=== PATIENT | female | born 1970 | race Caucasian/White ===

== ENCOUNTER → 2020-10-19 | Outpatient (REF) | payer MEDICARE ==
[2020-10-19 18:54] LABS: APPEARANCE, URINE CLOUDY (CLEAR); BACTERIA, URINE AUTO NEGATIVE (NEGATIVE); BILIRUBIN, URINE AUTO NEGATIVE (NEGATIVE); BLOOD, URINE BLOOD NEGATIVE (NEGATIVE); COLOR, URINE AMBER (YELLOW); GLUCOSE, URINE (UA) AUTO 3+ mg/dL (NEGATIVE); KETONE, URINE AUTO NEGATIVE (NEGATIVE); LEUKOCYTE ESTERASE, URINE AUTO NEGATIVE (NEGATIVE); MUCUS, URINE SMALL (NEGATIVE); NITRITE, URINE AUTO NEGATIVE (NEGATIVE); PROTEIN, URINE AUTO NEGATIVE (NEGATIVE); RBC, URINE AUTO 2 /HPF (0-3); SPECIFIC GRAVITY URINE AUTO 1.022 (1.002-1.035); SQUAMOUS EPITHELIAL CELL UR AU 1 /HPF (0-6); UROBILINOGEN, URINE AUTO 0.2 mg/dL (0.0-2.0); WBC, URINE AUTO 5 /HPF (0-3)
== END ==
LOC: M SMT 17:33
PROVIDERS: ATTEND Nurse Practitioner Family
DX: R32 Unspecified urinary incontinence (principal)
CPT/HCPCS: 51798; 81001; 87086; G0463

== ENCOUNTER 2021-01-27 12:52 | Emergency (ER) | payer MEDICARE ==
[~2021-01-27] VITALS: Ht 167.6 cm; Wt 54.5 kg
[2021-01-27] MEDS ORDERED: TRAZ-252 PO (13:32)
[2021-01-27] MEDS ORDERED: GABA-283 PO (13:33)
[2021-01-27] MEDS ORDERED: OXYB10TA23 PO (13:33)
[2021-01-27] MEDS ORDERED: BUPR300T92 PO (13:33)
[2021-01-27] MEDS ORDERED: PANT40TA29 PO (13:33)
[2021-01-27] MEDS ORDERED: METH1VL IV (13:35)
[2021-01-27] MEDS ORDERED: OCRE300I IV (13:35)
[2021-01-27 15:09] LABS: BASO % 0.3 % (0.0-1.0); EOS # 0.2 10^3/uL (0.0-0.5); EOS % 1.2 % (0.0-3.0); HEMATOCRIT 35.9 % (36.0-47.0); HEMOGLOBIN 11.9 g/dl (12.0-15.5); LYMPH # 1.3 10^3/uL (1.5-5.0); LYMPH % 10.2 % (24.0-44.0); MEAN CORPUSCULAR HGB CONC 33.1 g/dl (32.0-36.5); MEAN CORPUSCULAR VOLUME 90.4 fl (80.0-96.0); MONO # 0.5 10^3/uL (0.0-0.8); MONO % 4.4 % (2.0-8.0); NEUTROPHILS # 10.3 10^3/uL (1.5-8.5); NEUTROPHILS % 83.5 % (36.0-66.0); PLATELET COUNT, AUTOMATED 232 10^3/uL (150-450); RED BLOOD COUNT 3.97 10^6/uL (4.00-5.40); WHITE BLOOD COUNT 12.4 10^3/uL (4.0-10.0)
[2021-01-27 15:48] LABS: BLOOD UREA NITROGEN 13 MG/DL (7-18); CALCIUM LEVEL 8.3 MG/DL (8.5-10.1); CARBON DIOXIDE LEVEL 28 MEQ/L (21-32); CHLORIDE LEVEL 106 MEQ/L (98-107); GLOMERULAR FILTRATION RATE > 60.0 (>51); GLUCOSE, FASTING 77 MG/DL (70-100); SODIUM LEVEL 141 MEQ/L (136-145); THYROID STIMULATING HORMONE 0.688 uIU/ML (0.358-3.740)
[2021-01-27 16:05] LABS: CK-MB VALUE MASS < 1.0 NG/ML (<3.6); CPK CREATINE PHOSPHOKINASE 42 U/L (26-192); MB/CK RELATIVE INDEX 2.38 (< OR =4); TROPONIN I < 0.02 NG/ML (< 0.10)
[2021-01-27] MEDS ORDERED: SODIUM CHLORIDE 0.9% INJ 10 ML SYR IV PRN (16:50)
[2021-01-27 17:14] VITALS: BP 114/68
--- NOTE | 2021-01-28 07:47 | ECGEPIP ---
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
[2021-01-28] MEDS ORDERED: SODIUM CHLORIDE 0.9% INJ 10 ML SYR IV SCH (09:00)
[2021-01-31] MEDS ORDERED: METH-855 PO (09:30)
== END 2021-01-27 17:16 | disposition home or self-care (01) ==
LOC: M ED 12:52
DX: R55 Syncope and collapse (principal); G35 Multiple sclerosis; Z79.899 Other long term (current) drug therapy
CPT/HCPCS: 36415; 80048; 81015; 82550; 82553; 84443; 84484; 85025; 87086; 93005; 93041; 94760; 99284; G0463; J1642

== ENCOUNTER → 2021-01-27 | Outpatient (REF) | payer MEDICARE ==
[~2021-01-27] MED LIST: BUPR300T92 PO; GABA-283 PO; METH-855 PO; METH1VL IV; OCRE300I IV; OXYB10TA23 PO; PANT40TA29 PO; TRAZ-252 PO
[2021-01-27 18:18] LABS: BACTERIA, URINE AUTO NEGATIVE (NEGATIVE); RBC, URINE AUTO 0 /HPF (0-3); SQUAMOUS EPITHELIAL CELL UR AU 0 /HPF (0-6); WBC, URINE AUTO 12 /HPF (0-3)
== END ==
LOC: M SMT 17:10
PROVIDERS: ATTEND Specialist
DX: R32 Unspecified urinary incontinence (principal)

== ENCOUNTER 2021-02-01 07:26 | Day surgery (SDC) | payer MEDICARE ==
[~2021-02-01] VITALS: Ht 167.6 cm; Wt 54.4 kg
[~2021-02-01 07:26] MED LIST changes: +LIDOCAINE 1% MDV 20ML VIAL SQ PRN; +LR 1,000 ML IV ONE
[2021-02-01] MEDS ORDERED: ceFAZolin SOD 2 GM in IV 1 EA IV ONE (07:55)
[2021-02-01] MEDS ORDERED: LIDOCAINE 1% SDV 30ML VIAL As Ordered ONE (08:51)
[2021-02-01] MEDS ORDERED: SODIUM BICARBONATE 8.4% INJ 50MEQ 50 ML VIAL As Ordered ONE (09:24)
[2021-02-01] MEDS ORDERED: KETOROLAC 60MG 2ML VIAL As Ordered ONE (09:26)
[2021-02-01] MEDS ORDERED: propofoL 200 MG/20 ML VIAL As Ordered ONE (09:26)
[2021-02-01] MEDS ORDERED: fentaNYL 100 MCG/2 ML INJECTION (J3010) As Ordered ONE (09:26)
[2021-02-01] MEDS ORDERED: MIDAZOLAM INJ 2MG/2ML VIAL (J2250 PER 1MG) As Ordered ONE (09:26)
[2021-02-01] MEDS ORDERED: LIDOCAINE 2% 100MG/5ML SDV (FOR ANES.) As Ordered ONE (09:26)
[2021-02-01] MEDS ORDERED: ONDANSETRON 4MG/2ML VIAL As Ordered ONE (09:26)
[2021-02-01] MEDS ORDERED: GLYCOPYRROLATE INJ 0.2 MG/ML 2 ML VIAL As Ordered ONE (09:26)
[2021-02-01] MEDS ORDERED: KETAMINE HCL 200 MG/20 ML VIAL As Ordered ONE (10:03)
[2021-02-01] MEDS ORDERED: ceFAZolin 1GM VIAL (J0690 PER 500MG) As Ordered ONE (10:03)
--- NOTE | 2021-02-01 10:30 | REP ---
INDICATION: INTERSTIM STAGE 2 PLACEMENT. COMPARISON: None. TECHNIQUE: Two views. 29.8 seconds of fluoroscopy time is reported FINDINGS: A sequence of 2 last image hold fluoroscopically obtained spot radiographs of the sacrum document trans sacral neurostimulator lead placement. IMPRESSION: Procedural imaging. <Electronically signed by Romulo Hernandez > 02/01/21 1023
--- NOTE | 2021-02-01 10:42 | ROOPDOC ---
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 She underwent the InterStim test and noticed a significant improvement even though she did not feel the device in the vaginal region. It was decided to proceed with permanent implantation. All options, alternatives, risks, and benefits were discussed at length. Risks discussed included bleeding, infection, problems with any of the implantable hardware, need for reprogramming, pain at the implant site etc. Informed consent was obtained in both verbal and written form. DESCRIPTION OF PROCEDURE: The patient was brought into the operating room and placed in the prone position. She had pillows placed under her pelvis and under her shins. Tape was placed so that we could see her anus. IV sedation was given and she was prepped and draped in the usual fashion. A special foramen needle was placed 2 cm above the sacral notch and 3 cm lateral where the inductor tester had been placed. Using fluoroscopy this was then placed through the right S3 foramen. The depth of the needle was confirmed and adjusted fluoroscopically. The patient then identified the location but did not have sensation in the vagina. She had excellent motor response with anal bellowing followed by big toe movement on low levels. The foramen needle stylette was removed and a directional guide was placed and confirmed fluoroscopy. Lead introducer sheath and dilator was placed through the needle and the needle was removed. The lead was seen until 3 electrodes were visible below the sacrum. The electrode was tested for location and patient sensation, visualization of [place], and plantar flexion. An incision was then made into the subcutaneous tissue posterior to the iliac crest and lateral to the sacrum. Blunt dissection was continued until there was a pocket large enough for the Interstim battery. The tunneling tool with straw was placed from the lead exit site subcutaneously to the incised pocket. The tunneling tube was removed and the lead was fed through the straw and pulled out of the pocket site. The lead was cleansed of bodily fluid, dried and antibiotic irrigation was used. The lead was then inserted into the header of the InterStim neurostimulator until the blue tip was visualized at the distal window the single setscrew was tightened. The neurostimulator was placed in the subcutaneous pocket with the edge identified side placed upwards and the excessive lead wrapped counterclockwise around the neurostimulator. The programming head was placed over the implanted neurostimulator in a sterile cover to ensure adequate lead connection and the parameters with were within normal limits. Impedances were confirmed to be within normal limits. The wound was again irrigated with antibiotic solution and closed with 2-0 chromic subcuticulars sutures and 4-0 Monocryl skin sutures. Counts were correct. Steri- Strips and gauze was placed over the incision. The patient tolerated the procedure well. RAYNA BECKETT MD Feb 01, 2021 10:42
[2021-02-01 11:20] VITALS: BP 102/70
== END 2021-02-01 11:25 | disposition home or self-care (01) ==
LOC: M SDC 07:26
PROVIDERS: ATTEND Specialist
DX: R32 Unspecified urinary incontinence (principal); G35 Multiple sclerosis; K21.9 Gastro-esophageal reflux disease without esophagitis; Z79.899 Other long term (current) drug therapy; G25.81 Restless legs syndrome; E78.2 Mixed hyperlipidemia
CPT/HCPCS: 64581; 64590; 76000; C1767; C1897; J0690; J1885; J2250; J2405; J3010; U0002

== ENCOUNTER → 2022-08-04 | Outpatient (CLI) | payer MEDICAID, MEDICARE ==
[~2022-08-04] MED LIST changes: -LIDOCAINE 1% MDV 20ML VIAL SQ PRN; -LR 1,000 ML IV ONE
== END ==
LOC: M RAD 10:28
PROVIDERS: ATTEND Psychiatry & Neurology Neurology
DX: G35 Multiple sclerosis (principal)

== ENCOUNTER → 2022-10-18 | Outpatient (REF) | payer MEDICARE ==
[2022-10-18 19:23] LABS: AMORPHOUS SEDIMENT LARGE (NEGATIVE); BACTERIA, URINE AUTO NEGATIVE (NEGATIVE); RBC, URINE AUTO 0 /HPF (0-3); SQUAMOUS EPITHELIAL CELL UR AU 0 /HPF (0-6); WBC, URINE AUTO 6 /HPF (0-3)
== END ==
LOC: M SMT 16:50
PROVIDERS: ATTEND Specialist
DX: R82.90 Unspecified abnormal findings in urine (principal)

== ENCOUNTER 2023-03-03 16:26 | Inpatient (IN) | payer MEDICARE, MEDICAID ==
[~2023-03-03] VITALS: Ht 167.6 cm; Wt 68.2 kg
[~2023-03-03 16:26] MED LIST changes: -GABA-283 PO; +GABA-284 PO
[2023-03-03] MEDS ORDERED: OFAT20PE INJ (16:45)
[2023-03-03] MEDS ORDERED: SODIUM CHLORIDE 0.9% INJ 10 ML SYR IV PRN (19:30)
[2023-03-03 20:18] LABS: BASO # 0.1 10^3/uL (0.0-0.2); BASO % 0.8 % (0.0-1.0); EOS # 0.3 10^3/uL (0.0-0.5); EOS % 3.6 % (0.0-3.0); HEMATOCRIT 35.3 % (36.0-47.0); HEMOGLOBIN 11.5 g/dl (12.0-15.5); LYMPH # 2.5 10^3/uL (1.5-5.0); LYMPH % 33.5 % (24.0-44.0); MEAN CORPUSCULAR HEMOGLOBIN 30.3 pg (27.0-33.0); MEAN CORPUSCULAR HGB CONC 32.6 g/dl (32.0-36.5); MEAN CORPUSCULAR VOLUME 92.9 fl (80.0-96.0); MONO # 0.6 10^3/uL (0.0-0.8); MONO % 8.4 % (2.0-8.0); NEUTROPHILS % 53.4 % (36.0-66.0); PLATELET COUNT, AUTOMATED 312 10^3/uL (150-450); WHITE BLOOD COUNT 7.5 10^3/uL (4.0-10.0)
[2023-03-03 20:33] LABS: ERYTHROCYTE SEDIMENTATION RATE 12 mm/hr (0-30)
[2023-03-03 20:43] LABS: ALBUMIN 3.5 G/DL (3.2-5.2); ALKALINE PHOSPHATASE 58 U/L (46-116); ALT/SGPT 56 U/L (7.0-40); AST/SGOT 26 U/L (<34); BILIRUBIN,DIRECT < 0.1 MG/DL (<0.4); BILIRUBIN,TOTAL < 0.2 MG/DL (0.3-1.2); BLOOD UREA NITROGEN 15 MG/DL (9-23); CALCIUM LEVEL 8.6 MG/DL (8.5-10.1); CARBON DIOXIDE LEVEL 28 MMOL/L (20-31); CHLORIDE LEVEL 106 MMOL/L (98-107); CREATININE FOR GFR 0.56 MG/DL (0.55-1.30); GLOMERULAR FILTRATION RATE > 60.0 (>51); GLUCOSE, FASTING 101 MG/DL (60-100); SODIUM LEVEL 143 MMOL/L (136-145); TOTAL PROTEIN 6.2 G/DL (5.7-8.2)
[2023-03-03] MEDS ORDERED: GABAPENTIN 400MG CAP PO SCH (21:00)
[2023-03-03 21:41] LABS: C REACTIVE PROTEIN QUANTITATIV < 0.40 MG/DL (<1.0)
[2023-03-04] MEDS ORDERED: HOME MED LIST COMPLETE! XX SCH (00:20)
[2023-03-04] MEDS ORDERED: GABA800T4 PO ×2 (00:20)
[2023-03-04 06:30] LABS: HEMOGLOBIN 10.5 g/dl (12.0-15.5); MEAN CORPUSCULAR HEMOGLOBIN 29.7 pg (27.0-33.0); MEAN CORPUSCULAR HGB CONC 31.8 g/dl (32.0-36.5); MEAN CORPUSCULAR VOLUME 93.5 fl (80.0-96.0); PLATELET COUNT, AUTOMATED 267 10^3/uL (150-450); RED BLOOD COUNT 3.53 10^6/uL (4.00-5.40); WHITE BLOOD COUNT 6.1 10^3/uL (4.0-10.0)
[2023-03-04 06:58] LABS: BLOOD UREA NITROGEN 15 MG/DL (9-23); CALCIUM LEVEL 8.7 MG/DL (8.5-10.1); CARBON DIOXIDE LEVEL 30 MMOL/L (20-31); CHLORIDE LEVEL 105 MMOL/L (98-107); CREATININE FOR GFR 0.72 MG/DL (0.55-1.30); GLOMERULAR FILTRATION RATE > 60.0 (>51); GLUCOSE, FASTING 88 MG/DL (60-100); MAGNESIUM LEVEL 1.6 MG/DL (1.8-2.4); POTASSIUM SERUM 4.1 MMOL/L (3.5-5.1); SODIUM LEVEL 142 MMOL/L (136-145)
[2023-03-04] MEDS: traZODone 50 MG TAB PO SCH ×2 (06:59→20:44)
[2023-03-04] MEDS: GABAPENTIN 400MG CAP PO SCH ×3 (06:59→20:44)
[2023-03-04] MEDS: buPROPion **XL** TABLET 150MG (WELLBUTRIN XL) PO SCH (08:20)
[2023-03-04] MEDS: ENOXAPARIN 40MG/0.4ML SYRINGE (J1650 PER 10MG) SC SCH (08:21)
[2023-03-04] MEDS: oxyBUTYnin *DITROPAN XL* 5 MG TABCR PO SCH (08:21)
[2023-03-04] MEDS: PANTOPRAZOLE 40MG TAB (PROTONIX) PO SCH (08:21)
[2023-03-04] MEDS: SODIUM CHLORIDE 0.9% INJ 10 ML SYR IV SCH (08:22)
[2023-03-04] MEDS: ACETAMINOPHEN TAB 650MG DOSE (2X325MG) PO PRN (08:25)
[2023-03-04 14:59] VITALS: BP 115/63; TEMP 98.7; O2SAT 99
[2023-03-05 06:00] VITALS: BP 119/56; TEMP 97.9; O2SAT 98
[2023-03-05 06:33] LABS: HEMATOCRIT 34.4 % (36.0-47.0); MEAN CORPUSCULAR HEMOGLOBIN 29.8 pg (27.0-33.0); MEAN CORPUSCULAR VOLUME 93.2 fl (80.0-96.0); PLATELET COUNT, AUTOMATED 281 10^3/uL (150-450); RED BLOOD COUNT 3.69 10^6/uL (4.00-5.40); WHITE BLOOD COUNT 8.8 10^3/uL (4.0-10.0)
[2023-03-05 07:05] LABS: BLOOD UREA NITROGEN 16 MG/DL (9-23); CALCIUM LEVEL 8.8 MG/DL (8.5-10.1); CARBON DIOXIDE LEVEL 29 MMOL/L (20-31); CHLORIDE LEVEL 107 MMOL/L (98-107); CREATININE FOR GFR 0.79 MG/DL (0.55-1.30); GLOMERULAR FILTRATION RATE > 60.0 (>51); GLUCOSE, FASTING 80 MG/DL (60-100); POTASSIUM SERUM 4.2 MMOL/L (3.5-5.1); SODIUM LEVEL 143 MMOL/L (136-145)
[2023-03-05] MEDS: oxyBUTYnin *DITROPAN XL* 5 MG TABCR PO SCH (08:27)
[2023-03-05] MEDS: PANTOPRAZOLE 40MG TAB (PROTONIX) PO SCH (08:27)
[2023-03-05] MEDS: SODIUM CHLORIDE 0.9% INJ 10 ML SYR IV SCH (08:27)
[2023-03-05] MEDS: buPROPion **XL** TABLET 150MG (WELLBUTRIN XL) PO SCH (08:27)
[2023-03-05] MEDS: GABAPENTIN 400MG CAP PO SCH ×2 (08:27→21:41)
[2023-03-05] MEDS: MAG SULF 1GM/100ML (MAG RUN) 1 GM in IV 1 EA IV SCH ×2 (08:27→08:28)
[2023-03-05] MEDS: ENOXAPARIN 40MG/0.4ML SYRINGE (J1650 PER 10MG) SC SCH (08:28)
[2023-03-05] MEDS ORDERED: METHYLPREDNISOLONE 1000 MG IV SCH (09:00)
[2023-03-05 12:04] LABS: APPEARANCE, URINE CLOUDY (CLEAR); BACTERIA, URINE AUTO 1+ (NEGATIVE); BILIRUBIN, URINE AUTO NEGATIVE (NEGATIVE); BLOOD, URINE BLOOD 1+ (NEGATIVE); COLOR, URINE YELLOW (YELLOW); GLUCOSE, URINE (UA) AUTO NEGATIVE (NEGATIVE); KETONE, URINE AUTO NEGATIVE (NEGATIVE); LEUKOCYTE ESTERASE, URINE AUTO 3+ (NEGATIVE); MUCUS, URINE SMALL (NEGATIVE); NITRITE, URINE AUTO POSITIVE (NEGATIVE); PROTEIN, URINE AUTO 2+ mg/dL (NEGATIVE); RBC, URINE AUTO 11 /HPF (0-3); SPECIFIC GRAVITY URINE AUTO 1.013 (1.002-1.035); SQUAMOUS EPITHELIAL CELL UR AU 0 /HPF (0-6); UROBILINOGEN, URINE AUTO 0.2 mg/dL (0.0-2.0); WBC, URINE AUTO TNTC /HPF (0-3)
[2023-03-05] MEDS: cefTRIAXone SOD 1 GM in D5W MINI-BAG PLUS 50 ML IV SCH (13:00)
[2023-03-05 14:22] VITALS: BP 102/60; TEMP 97.8; O2SAT 100
[2023-03-05] MEDS: ACETAMINOPHEN TAB 650MG DOSE (2X325MG) PO PRN (14:40)
[2023-03-05 21:30] VITALS: BP 111/62; TEMP 97.9; O2SAT 99
[2023-03-05] MEDS: [UNRECOGNIZED DRUG - OTHER] SQ SCH (21:41)
[2023-03-05] MEDS: traZODone 50 MG TAB PO SCH (21:41)
[2023-03-06] MEDS: ACETAMINOPHEN TAB 650MG DOSE (2X325MG) PO PRN (00:53)
[2023-03-06 06:00] VITALS: BP 100/56; TEMP 96.9; O2SAT 98
[2023-03-06 06:34] LABS: HEMATOCRIT 33.7 % (36.0-47.0); HEMOGLOBIN 10.6 g/dl (12.0-15.5); MEAN CORPUSCULAR HEMOGLOBIN 29.6 pg (27.0-33.0); MEAN CORPUSCULAR HGB CONC 31.5 g/dl (32.0-36.5); MEAN CORPUSCULAR VOLUME 94.1 fl (80.0-96.0); PLATELET COUNT, AUTOMATED 282 10^3/uL (150-450); RED BLOOD COUNT 3.58 10^6/uL (4.00-5.40); WHITE BLOOD COUNT 6.7 10^3/uL (4.0-10.0)
[2023-03-06 07:07] LABS: BLOOD UREA NITROGEN 18 MG/DL (9-23); CALCIUM LEVEL 8.5 MG/DL (8.5-10.1); CARBON DIOXIDE LEVEL 30 MMOL/L (20-31); CHLORIDE LEVEL 107 MMOL/L (98-107); CREATININE FOR GFR 0.67 MG/DL (0.55-1.30); GLOMERULAR FILTRATION RATE > 60.0 (>51); GLUCOSE, FASTING 93 MG/DL (60-100); POTASSIUM SERUM 4.3 MMOL/L (3.5-5.1); SODIUM LEVEL 143 MMOL/L (136-145)
[2023-03-06] MEDS: methylPREDNISolone 1,000 MG, VIAL MATE ADAPTER 1 EACH in NS 250 ML IV SCH (09:04)
[2023-03-06] MEDS: buPROPion **XL** TABLET 150MG (WELLBUTRIN XL) PO SCH (09:05)
[2023-03-06] MEDS: oxyBUTYnin *DITROPAN XL* 5 MG TABCR PO SCH (09:05)
[2023-03-06] MEDS: GABAPENTIN 400MG CAP PO SCH ×2 (09:05→20:09)
[2023-03-06] MEDS: PANTOPRAZOLE 40MG TAB (PROTONIX) PO SCH (09:05)
[2023-03-06] MEDS: ENOXAPARIN 40MG/0.4ML SYRINGE (J1650 PER 10MG) SC SCH (09:06)
[2023-03-06] MEDS: SODIUM CHLORIDE 0.9% INJ 10 ML SYR IV SCH (09:07)
[2023-03-06 14:24] VITALS: BP 114/62; TEMP 98; O2SAT 98
[2023-03-06] MEDS: cefTRIAXone SOD 1 GM in D5W MINI-BAG PLUS 50 ML IV SCH (14:38)
[2023-03-06] MEDS: METHENAMINE HIPPURATE 1 GM PO SCH (20:09)
[2023-03-06] MEDS: traZODone 50 MG TAB PO SCH (20:09)
[2023-03-06 22:00] VITALS: BP 110/62; TEMP 98.4; O2SAT 98
[2023-03-07 05:48] VITALS: BP 108/56; TEMP 97.6; O2SAT 98
[2023-03-07 07:57] LABS: BLOOD UREA NITROGEN 17 MG/DL (9-23); CALCIUM LEVEL 8.9 MG/DL (8.5-10.1); CARBON DIOXIDE LEVEL 28 MMOL/L (20-31); CHLORIDE LEVEL 107 MMOL/L (98-107); CREATININE FOR GFR 0.55 MG/DL (0.55-1.30); GLOMERULAR FILTRATION RATE > 60.0 (>51); GLUCOSE, FASTING 95 MG/DL (60-100); MAGNESIUM LEVEL 1.9 MG/DL (1.8-2.4); POTASSIUM SERUM 3.9 MMOL/L (3.5-5.1); SODIUM LEVEL 144 MMOL/L (136-145)
[2023-03-07] MEDS: GABAPENTIN 400MG CAP PO SCH ×2 (09:47→21:52)
[2023-03-07] MEDS: oxyBUTYnin *DITROPAN XL* 5 MG TABCR PO SCH (09:47)
[2023-03-07] MEDS: BACTRIM 160MG/800MG DS TAB PO SCH ×2 (09:47→21:52)
[2023-03-07] MEDS: METHENAMINE HIPPURATE 1 GM PO SCH ×2 (09:48→21:52)
[2023-03-07] MEDS: PANTOPRAZOLE 40MG TAB (PROTONIX) PO SCH (09:48)
[2023-03-07] MEDS: buPROPion **XL** TABLET 150MG (WELLBUTRIN XL) PO SCH (09:48)
[2023-03-07] MEDS: ENOXAPARIN 40MG/0.4ML SYRINGE (J1650 PER 10MG) SC SCH (09:48)
[2023-03-07] MEDS: SODIUM CHLORIDE 0.9% INJ 10 ML SYR IV SCH (09:49)
[2023-03-07 13:59] VITALS: BP 126/72; TEMP 98.2; O2SAT 99
[2023-03-07 20:15] VITALS: BP 112/59; TEMP 97.8; O2SAT 100
[2023-03-07] MEDS: traZODone 50 MG TAB PO SCH (21:52)
[2023-03-08 04:50] VITALS: BP 129/61; TEMP 97.2; O2SAT 99
[2023-03-08 07:30] LABS: BLOOD UREA NITROGEN 21 MG/DL (9-23); CALCIUM LEVEL 8.5 MG/DL (8.5-10.1); CARBON DIOXIDE LEVEL 29 MMOL/L (20-31); CHLORIDE LEVEL 109 MMOL/L (98-107); CREATININE FOR GFR 0.63 MG/DL (0.55-1.30); GLOMERULAR FILTRATION RATE > 60.0 (>51); GLUCOSE, FASTING 73 MG/DL (60-100); MAGNESIUM LEVEL 1.8 MG/DL (1.8-2.4); POTASSIUM SERUM 4.1 MMOL/L (3.5-5.1); SODIUM LEVEL 144 MMOL/L (136-145)
[2023-03-08] MEDS: BACTRIM 160MG/800MG DS TAB PO SCH ×2 (08:35→20:12)
[2023-03-08] MEDS: oxyBUTYnin *DITROPAN XL* 5 MG TABCR PO SCH (08:35)
[2023-03-08] MEDS: buPROPion **XL** TABLET 150MG (WELLBUTRIN XL) PO SCH (08:35)
[2023-03-08] MEDS: GABAPENTIN 400MG CAP PO SCH ×2 (08:35→20:12)
[2023-03-08] MEDS: PANTOPRAZOLE 40MG TAB (PROTONIX) PO SCH (08:35)
[2023-03-08] MEDS: ENOXAPARIN 40MG/0.4ML SYRINGE (J1650 PER 10MG) SC SCH (08:35)
[2023-03-08] MEDS: METHENAMINE HIPPURATE 1 GM PO SCH ×2 (08:35→20:12)
[2023-03-08] MEDS: SODIUM CHLORIDE 0.9% INJ 10 ML SYR IV SCH (08:36)
[2023-03-08] MEDS: traZODone 50 MG TAB PO SCH (20:13)
[2023-03-08] MEDS: SENOKOT S TAB PO PRN (20:24)
[2023-03-09] MEDS: ACETAMINOPHEN TAB 650MG DOSE (2X325MG) PO PRN ×2 (04:19→17:36)
[2023-03-09 05:38] VITALS: BP 101/58; TEMP 97.1; O2SAT 97
[2023-03-09 07:29] LABS: BLOOD UREA NITROGEN 19 MG/DL (9-23); CALCIUM LEVEL 9.1 MG/DL (8.5-10.1); CARBON DIOXIDE LEVEL 30 MMOL/L (20-31); CHLORIDE LEVEL 105 MMOL/L (98-107); CREATININE FOR GFR 0.73 MG/DL (0.55-1.30); GLOMERULAR FILTRATION RATE > 60.0 (>51); GLUCOSE, FASTING 77 MG/DL (60-100); MAGNESIUM LEVEL 1.8 MG/DL (1.8-2.4); POTASSIUM SERUM 4.6 MMOL/L (3.5-5.1); SODIUM LEVEL 142 MMOL/L (136-145)
[2023-03-09] MEDS: METHENAMINE HIPPURATE 1 GM PO SCH ×2 (08:26→20:56)
[2023-03-09] MEDS: buPROPion **XL** TABLET 150MG (WELLBUTRIN XL) PO SCH (08:27)
[2023-03-09] MEDS: BACTRIM 160MG/800MG DS TAB PO SCH ×2 (08:27→20:56)
[2023-03-09] MEDS: SENOKOT S TAB PO PRN ×2 (08:27→20:56)
[2023-03-09] MEDS: PANTOPRAZOLE 40MG TAB (PROTONIX) PO SCH (08:27)
[2023-03-09] MEDS: SODIUM CHLORIDE 0.9% INJ 10 ML SYR IV SCH (08:27)
[2023-03-09] MEDS: ENOXAPARIN 40MG/0.4ML SYRINGE (J1650 PER 10MG) SC SCH (08:27)
[2023-03-09] MEDS: oxyBUTYnin *DITROPAN XL* 5 MG TABCR PO SCH (08:27)
[2023-03-09] MEDS: GABAPENTIN 400MG CAP PO SCH ×2 (08:27→20:56)
[2023-03-09] MEDS: traZODone 50 MG TAB PO SCH (20:56)
[2023-03-10] MEDS: ACETAMINOPHEN TAB 650MG DOSE (2X325MG) PO PRN (04:02)
[2023-03-10 05:33] VITALS: BP 106/60; TEMP 97.1; O2SAT 99
[2023-03-10 08:01] LABS: BLOOD UREA NITROGEN 17 MG/DL (9-23); CALCIUM LEVEL 8.9 MG/DL (8.5-10.1); CARBON DIOXIDE LEVEL 30 MMOL/L (20-31); CHLORIDE LEVEL 105 MMOL/L (98-107); CREATININE FOR GFR 0.85 MG/DL (0.55-1.30); GLOMERULAR FILTRATION RATE > 60.0 (>51); GLUCOSE, FASTING 71 MG/DL (60-100); MAGNESIUM LEVEL 1.8 MG/DL (1.8-2.4); POTASSIUM SERUM 4.2 MMOL/L (3.5-5.1); SODIUM LEVEL 141 MMOL/L (136-145)
[2023-03-10] MEDS: SODIUM CHLORIDE 0.9% INJ 10 ML SYR IV SCH (09:00)
[2023-03-10] MEDS: SENOKOT S TAB PO PRN (10:21)
[2023-03-10] MEDS: buPROPion **XL** TABLET 150MG (WELLBUTRIN XL) PO SCH (10:22)
[2023-03-10] MEDS: ENOXAPARIN 40MG/0.4ML SYRINGE (J1650 PER 10MG) SC SCH (10:22)
[2023-03-10] MEDS: GABAPENTIN 400MG CAP PO SCH ×2 (10:22→20:27)
[2023-03-10] MEDS: METHENAMINE HIPPURATE 1 GM PO SCH ×2 (10:23→20:37)
[2023-03-10] MEDS: MOM 30ML SUSPENSION UDC PO PRN (10:24)
[2023-03-10] MEDS: oxyBUTYnin *DITROPAN XL* 5 MG TABCR PO SCH (10:24)
[2023-03-10] MEDS: PANTOPRAZOLE 40MG TAB (PROTONIX) PO SCH (10:35)
[2023-03-10] MEDS: traZODone 50 MG TAB PO SCH (20:27)
[2023-03-10 22:00] VITALS: BP 105/55; TEMP 98.3; O2SAT 99
[2023-03-11 06:00] VITALS: BP 115/53; TEMP 98.2; O2SAT 99
[2023-03-11 07:02] LABS: BLOOD UREA NITROGEN 19 MG/DL (9-23); CARBON DIOXIDE LEVEL 29 MMOL/L (20-31); CHLORIDE LEVEL 105 MMOL/L (98-107); CREATININE FOR GFR 0.79 MG/DL (0.55-1.30); GLOMERULAR FILTRATION RATE > 60.0 (>51); GLUCOSE, FASTING 90 MG/DL (60-100); MAGNESIUM LEVEL 1.9 MG/DL (1.8-2.4); POTASSIUM SERUM 4.6 MMOL/L (3.5-5.1); SODIUM LEVEL 139 MMOL/L (136-145)
[2023-03-11] MEDS: ENOXAPARIN 40MG/0.4ML SYRINGE (J1650 PER 10MG) SC SCH (09:59)
[2023-03-11] MEDS: METHENAMINE HIPPURATE 1 GM PO SCH ×2 (09:59→21:39)
[2023-03-11] MEDS: oxyBUTYnin *DITROPAN XL* 5 MG TABCR PO SCH (10:00)
[2023-03-11] MEDS: PANTOPRAZOLE 40MG TAB (PROTONIX) PO SCH (10:00)
[2023-03-11] MEDS: buPROPion **XL** TABLET 150MG (WELLBUTRIN XL) PO SCH (10:00)
[2023-03-11] MEDS: SODIUM CHLORIDE 0.9% INJ 10 ML SYR IV SCH (10:01)
[2023-03-11] MEDS: GABAPENTIN 400MG CAP PO SCH ×2 (10:01→21:39)
[2023-03-11] MEDS: traZODone 50 MG TAB PO SCH (21:39)
[2023-03-12 06:43] LABS: BLOOD UREA NITROGEN 18 MG/DL (9-23); CALCIUM LEVEL 9.3 MG/DL (8.5-10.1); CARBON DIOXIDE LEVEL 31 MMOL/L (20-31); CHLORIDE LEVEL 102 MMOL/L (98-107); GLOMERULAR FILTRATION RATE > 60.0 (>51); GLUCOSE, FASTING 96 MG/DL (60-100); MAGNESIUM LEVEL 1.9 MG/DL (1.8-2.4); POTASSIUM SERUM 4.6 MMOL/L (3.5-5.1); SODIUM LEVEL 140 MMOL/L (136-145)
[2023-03-12 06:58] VITALS: BP 108/52; TEMP 97.9; O2SAT 98
[2023-03-12] MEDS: SODIUM CHLORIDE 0.9% INJ 10 ML SYR IV SCH (09:00)
[2023-03-12] MEDS: oxyBUTYnin *DITROPAN XL* 5 MG TABCR PO SCH (09:18)
[2023-03-12] MEDS: METHENAMINE HIPPURATE 1 GM PO SCH ×2 (09:19→21:02)
[2023-03-12] MEDS: GABAPENTIN 400MG CAP PO SCH ×2 (09:19→21:01)
[2023-03-12] MEDS: PANTOPRAZOLE 40MG TAB (PROTONIX) PO SCH (09:20)
[2023-03-12] MEDS: buPROPion **XL** TABLET 150MG (WELLBUTRIN XL) PO SCH (09:20)
[2023-03-12] MEDS: ENOXAPARIN 40MG/0.4ML SYRINGE (J1650 PER 10MG) SC SCH (09:20)
[2023-03-12] MEDS: traZODone 50 MG TAB PO SCH (21:01)
[2023-03-12] MEDS: ACETAMINOPHEN TAB 650MG DOSE (2X325MG) PO PRN (21:01)
[2023-03-12 22:02] VITALS: BP 100/55; O2SAT 96
[2023-03-13 01:53] VITALS: BP 102/65; TEMP 97.5; O2SAT 96
[2023-03-13 05:54] VITALS: BP 107/68; TEMP 97.5; O2SAT 97
[2023-03-13 07:18] LABS: BLOOD UREA NITROGEN 17 MG/DL (9-23); CALCIUM LEVEL 8.8 MG/DL (8.5-10.1); CARBON DIOXIDE LEVEL 27 MMOL/L (20-31); CHLORIDE LEVEL 104 MMOL/L (98-107); CREATININE FOR GFR 0.73 MG/DL (0.55-1.30); GLOMERULAR FILTRATION RATE > 60.0 (>51); GLUCOSE, FASTING 79 MG/DL (60-100); MAGNESIUM LEVEL 1.6 MG/DL (1.8-2.4); POTASSIUM SERUM 4.5 MMOL/L (3.5-5.1); SODIUM LEVEL 138 MMOL/L (136-145)
[2023-03-13] MEDS: GABAPENTIN 400MG CAP PO SCH ×2 (08:07→21:57)
[2023-03-13] MEDS: PANTOPRAZOLE 40MG TAB (PROTONIX) PO SCH (08:07)
[2023-03-13] MEDS: METHENAMINE HIPPURATE 1 GM PO SCH ×2 (08:07→21:57)
[2023-03-13] MEDS: oxyBUTYnin *DITROPAN XL* 5 MG TABCR PO SCH (08:07)
[2023-03-13] MEDS: buPROPion **XL** TABLET 150MG (WELLBUTRIN XL) PO SCH (08:07)
[2023-03-13] MEDS: ENOXAPARIN 40MG/0.4ML SYRINGE (J1650 PER 10MG) SC SCH (08:08)
[2023-03-13] MEDS: SODIUM CHLORIDE 0.9% INJ 10 ML SYR IV SCH (08:10)
[2023-03-13 10:00] VITALS: BP 106/68; TEMP 97.9; O2SAT 100
[2023-03-13 14:00] VITALS: BP 103/73; TEMP 98.1; O2SAT 99
[2023-03-13] MEDS: traZODone 50 MG TAB PO SCH (21:57)
[2023-03-14 06:52] VITALS: BP 96/65; TEMP 98.8; O2SAT 100
[2023-03-14] MEDS: SODIUM CHLORIDE 0.9% INJ 10 ML SYR IV SCH (09:00)
[2023-03-14] MEDS: PANTOPRAZOLE 40MG TAB (PROTONIX) PO SCH (09:23)
[2023-03-14] MEDS: GABAPENTIN 400MG CAP PO SCH ×2 (09:26→20:25)
[2023-03-14] MEDS: oxyBUTYnin *DITROPAN XL* 5 MG TABCR PO SCH (09:27)
[2023-03-14] MEDS: buPROPion **XL** TABLET 150MG (WELLBUTRIN XL) PO SCH (09:27)
[2023-03-14] MEDS: ENOXAPARIN 40MG/0.4ML SYRINGE (J1650 PER 10MG) SC SCH (09:28)
[2023-03-14] MEDS: METHENAMINE HIPPURATE 1 GM PO SCH ×2 (09:29→20:25)
[2023-03-14] MEDS: traZODone 50 MG TAB PO SCH (20:25)
[2023-03-15 05:22] VITALS: BP 92/65; TEMP 96.4; O2SAT 97
[2023-03-15] MEDS: GABAPENTIN 400MG CAP PO SCH ×2 (09:52→20:15)
[2023-03-15] MEDS: buPROPion **XL** TABLET 150MG (WELLBUTRIN XL) PO SCH (09:54)
[2023-03-15] MEDS: PANTOPRAZOLE 40MG TAB (PROTONIX) PO SCH (09:55)
[2023-03-15] MEDS: oxyBUTYnin *DITROPAN XL* 5 MG TABCR PO SCH (09:55)
[2023-03-15] MEDS: METHENAMINE HIPPURATE 1 GM PO SCH ×2 (09:56→20:16)
[2023-03-15] MEDS: ENOXAPARIN 40MG/0.4ML SYRINGE (J1650 PER 10MG) SC SCH (09:56)
[2023-03-15] MEDS: SODIUM CHLORIDE 0.9% INJ 10 ML SYR IV SCH (09:58)
[2023-03-15] MEDS: traZODone 50 MG TAB PO SCH (20:15)
[2023-03-16 05:10] VITALS: BP 96/61; TEMP 97.1; O2SAT 100
[2023-03-16] MEDS: SODIUM CHLORIDE 0.9% INJ 10 ML SYR IV SCH (09:00)
[2023-03-16] MEDS: buPROPion **XL** TABLET 150MG (WELLBUTRIN XL) PO SCH (09:02)
[2023-03-16] MEDS: oxyBUTYnin *DITROPAN XL* 5 MG TABCR PO SCH (09:02)
[2023-03-16] MEDS: GABAPENTIN 400MG CAP PO SCH ×2 (09:02→20:36)
[2023-03-16] MEDS: METHENAMINE HIPPURATE 1 GM PO SCH ×2 (09:03→20:37)
[2023-03-16] MEDS: ENOXAPARIN 40MG/0.4ML SYRINGE (J1650 PER 10MG) SC SCH (09:03)
[2023-03-16] MEDS: PANTOPRAZOLE 40MG TAB (PROTONIX) PO SCH (09:03)
[2023-03-16] MEDS: traZODone 50 MG TAB PO SCH (20:36)
[2023-03-17 06:00] VITALS: BP 97/60; TEMP 98.1; O2SAT 97
[2023-03-17] MEDS: SODIUM CHLORIDE 0.9% INJ 10 ML SYR IV SCH (07:29)
[2023-03-17] MEDS: buPROPion **XL** TABLET 150MG (WELLBUTRIN XL) PO SCH (09:42)
[2023-03-17] MEDS: PANTOPRAZOLE 40MG TAB (PROTONIX) PO SCH (09:42)
[2023-03-17] MEDS: METHENAMINE HIPPURATE 1 GM PO SCH ×2 (09:43→20:23)
[2023-03-17] MEDS: oxyBUTYnin *DITROPAN XL* 5 MG TABCR PO SCH (09:43)
[2023-03-17] MEDS: GABAPENTIN 400MG CAP PO SCH ×2 (09:43→20:23)
[2023-03-17] MEDS: ENOXAPARIN 40MG/0.4ML SYRINGE (J1650 PER 10MG) SC SCH (09:43)
[2023-03-17] MEDS: ANALGESIC BALM CRM 3OZ TOP PRN (09:47)
[2023-03-17] MEDS: traZODone 50 MG TAB PO SCH (20:23)
[2023-03-18 05:11] VITALS: BP 100/61; TEMP 97.7; O2SAT 99
[2023-03-18] MEDS: PANTOPRAZOLE 40MG TAB (PROTONIX) PO SCH (08:50)
[2023-03-18] MEDS: buPROPion **XL** TABLET 150MG (WELLBUTRIN XL) PO SCH (08:50)
[2023-03-18] MEDS: oxyBUTYnin *DITROPAN XL* 5 MG TABCR PO SCH (08:50)
[2023-03-18] MEDS: GABAPENTIN 400MG CAP PO SCH ×2 (08:50→20:58)
[2023-03-18] MEDS: METHENAMINE HIPPURATE 1 GM PO SCH ×2 (08:51→20:59)
[2023-03-18] MEDS: ENOXAPARIN 40MG/0.4ML SYRINGE (J1650 PER 10MG) SC SCH (08:51)
[2023-03-18] MEDS: SODIUM CHLORIDE 0.9% INJ 10 ML SYR IV SCH (09:00)
[2023-03-18] MEDS: MOM 30ML SUSPENSION UDC PO PRN (18:44)
[2023-03-18] MEDS: traZODone 50 MG TAB PO SCH (20:58)
[2023-03-19 06:00] VITALS: BP 100/61; TEMP 97.5; O2SAT 98
[2023-03-19] MEDS: METHENAMINE HIPPURATE 1 GM PO SCH ×2 (08:46→20:58)
[2023-03-19] MEDS: GABAPENTIN 400MG CAP PO SCH ×2 (08:47→20:58)
[2023-03-19] MEDS: buPROPion **XL** TABLET 150MG (WELLBUTRIN XL) PO SCH (08:47)
[2023-03-19] MEDS: oxyBUTYnin *DITROPAN XL* 5 MG TABCR PO SCH (08:48)
[2023-03-19] MEDS: PANTOPRAZOLE 40MG TAB (PROTONIX) PO SCH (08:48)
[2023-03-19] MEDS: ENOXAPARIN 40MG/0.4ML SYRINGE (J1650 PER 10MG) SC SCH (08:49)
[2023-03-19] MEDS: SODIUM CHLORIDE 0.9% INJ 10 ML SYR IV SCH (08:50)
[2023-03-19] MEDS: ACETAMINOPHEN TAB 650MG DOSE (2X325MG) PO PRN (19:21)
[2023-03-19] MEDS: traZODone 50 MG TAB PO SCH (20:57)
[2023-03-20 05:32] VITALS: BP 102/58; TEMP 97.7; O2SAT 96
[2023-03-20] MEDS: oxyBUTYnin *DITROPAN XL* 5 MG TABCR PO SCH (08:37)
[2023-03-20] MEDS: buPROPion **XL** TABLET 150MG (WELLBUTRIN XL) PO SCH (08:37)
[2023-03-20] MEDS: ENOXAPARIN 40MG/0.4ML SYRINGE (J1650 PER 10MG) SC SCH (08:38)
[2023-03-20] MEDS: GABAPENTIN 400MG CAP PO SCH ×2 (08:38→20:05)
[2023-03-20] MEDS: METHENAMINE HIPPURATE 1 GM PO SCH ×2 (08:38→20:04)
[2023-03-20] MEDS: PANTOPRAZOLE 40MG TAB (PROTONIX) PO SCH (08:38)
[2023-03-20] MEDS: SODIUM CHLORIDE 0.9% INJ 10 ML SYR IV SCH (08:39)
[2023-03-20 12:58] LABS: HEMATOCRIT 39.2 % (36.0-47.0); HEMOGLOBIN 12.5 g/dl (12.0-15.5); MEAN CORPUSCULAR HEMOGLOBIN 29.6 pg (27.0-33.0); MEAN CORPUSCULAR HGB CONC 31.9 g/dl (32.0-36.5); MEAN CORPUSCULAR VOLUME 92.7 fl (80.0-96.0); PLATELET COUNT, AUTOMATED 299 10^3/uL (150-450); RED BLOOD COUNT 4.23 10^6/uL (4.00-5.40); WHITE BLOOD COUNT 6.3 10^3/uL (4.0-10.0)
[2023-03-20 13:30] LABS: BLOOD UREA NITROGEN 14 MG/DL (9-23); CALCIUM LEVEL 9.1 MG/DL (8.5-10.1); CARBON DIOXIDE LEVEL 32 MMOL/L (20-31); CHLORIDE LEVEL 105 MMOL/L (98-107); CREATININE FOR GFR 0.68 MG/DL (0.55-1.30); GLOMERULAR FILTRATION RATE > 60.0 (>51); GLUCOSE, FASTING 107 MG/DL (60-100); MAGNESIUM LEVEL 1.4 MG/DL (1.8-2.4); POTASSIUM SERUM 4.3 MMOL/L (3.5-5.1); SODIUM LEVEL 142 MMOL/L (136-145)
[2023-03-20] MEDS: traZODone 50 MG TAB PO SCH (20:04)
[2023-03-21 05:54] VITALS: BP 113/63; TEMP 98.4; O2SAT 97
[2023-03-21] MEDS: SODIUM CHLORIDE 0.9% INJ 10 ML SYR IV SCH (08:39)
[2023-03-21] MEDS: oxyBUTYnin *DITROPAN XL* 5 MG TABCR PO SCH (08:42)
[2023-03-21] MEDS: PANTOPRAZOLE 40MG TAB (PROTONIX) PO SCH (08:42)
[2023-03-21] MEDS: ENOXAPARIN 40MG/0.4ML SYRINGE (J1650 PER 10MG) SC SCH (08:43)
[2023-03-21] MEDS: METHENAMINE HIPPURATE 1 GM PO SCH ×2 (08:43→21:37)
[2023-03-21] MEDS: buPROPion **XL** TABLET 150MG (WELLBUTRIN XL) PO SCH (08:43)
[2023-03-21] MEDS: GABAPENTIN 400MG CAP PO SCH ×2 (08:43→21:37)
[2023-03-21] MEDS: traZODone 50 MG TAB PO SCH (21:37)
[2023-03-22 05:52] VITALS: BP 107/57; TEMP 97.9; O2SAT 96
[2023-03-22] MEDS: SODIUM CHLORIDE 0.9% INJ 10 ML SYR IV SCH (09:00)
[2023-03-22] MEDS: oxyBUTYnin *DITROPAN XL* 5 MG TABCR PO SCH (09:15)
[2023-03-22] MEDS: GABAPENTIN 400MG CAP PO SCH ×2 (09:15→20:36)
[2023-03-22] MEDS: ENOXAPARIN 40MG/0.4ML SYRINGE (J1650 PER 10MG) SC SCH (09:15)
[2023-03-22] MEDS: buPROPion **XL** TABLET 150MG (WELLBUTRIN XL) PO SCH (09:16)
[2023-03-22] MEDS: METHENAMINE HIPPURATE 1 GM PO SCH ×2 (09:16→20:37)
[2023-03-22] MEDS: PANTOPRAZOLE 40MG TAB (PROTONIX) PO SCH (09:16)
[2023-03-22] MEDS: traZODone 50 MG TAB PO SCH (20:36)
[2023-03-23 06:04] VITALS: BP 106/74; TEMP 97.7; O2SAT 98
[2023-03-23] MEDS: SODIUM CHLORIDE 0.9% INJ 10 ML SYR IV SCH (09:00)
[2023-03-23] MEDS: oxyBUTYnin *DITROPAN XL* 5 MG TABCR PO SCH (09:27)
[2023-03-23] MEDS: PANTOPRAZOLE 40MG TAB (PROTONIX) PO SCH (09:27)
[2023-03-23] MEDS: buPROPion **XL** TABLET 150MG (WELLBUTRIN XL) PO SCH (09:27)
[2023-03-23] MEDS: GABAPENTIN 400MG CAP PO SCH ×2 (09:28→20:51)
[2023-03-23] MEDS: ENOXAPARIN 40MG/0.4ML SYRINGE (J1650 PER 10MG) SC SCH (09:28)
[2023-03-23] MEDS: METHENAMINE HIPPURATE 1 GM PO SCH ×2 (09:29→20:51)
[2023-03-23] MEDS: traZODone 50 MG TAB PO SCH (20:51)
[2023-03-24 05:54] VITALS: BP 91/53; TEMP 97.9; O2SAT 99
[2023-03-24] MEDS: buPROPion **XL** TABLET 150MG (WELLBUTRIN XL) PO SCH (08:03)
[2023-03-24] MEDS: PANTOPRAZOLE 40MG TAB (PROTONIX) PO SCH (08:03)
[2023-03-24] MEDS: oxyBUTYnin *DITROPAN XL* 5 MG TABCR PO SCH (08:04)
[2023-03-24] MEDS: GABAPENTIN 400MG CAP PO SCH ×2 (08:04→21:41)
[2023-03-24] MEDS: ENOXAPARIN 40MG/0.4ML SYRINGE (J1650 PER 10MG) SC SCH (08:05)
[2023-03-24] MEDS: METHENAMINE HIPPURATE 1 GM PO SCH ×2 (08:06→21:41)
[2023-03-24] MEDS: SODIUM CHLORIDE 0.9% INJ 10 ML SYR IV SCH (08:06)
[2023-03-24] MEDS: traZODone 50 MG TAB PO SCH (21:41)
[2023-03-25 05:36] VITALS: BP 90/53; TEMP 98.4; O2SAT 98
[2023-03-25] MEDS: GABAPENTIN 400MG CAP PO SCH ×2 (10:09→20:29)
[2023-03-25] MEDS: buPROPion **XL** TABLET 150MG (WELLBUTRIN XL) PO SCH (10:09)
[2023-03-25] MEDS: PANTOPRAZOLE 40MG TAB (PROTONIX) PO SCH (10:09)
[2023-03-25] MEDS: oxyBUTYnin *DITROPAN XL* 5 MG TABCR PO SCH (10:09)
[2023-03-25] MEDS: SODIUM CHLORIDE 0.9% INJ 10 ML SYR IV SCH (10:10)
[2023-03-25] MEDS: ENOXAPARIN 40MG/0.4ML SYRINGE (J1650 PER 10MG) SC SCH (10:10)
[2023-03-25] MEDS: METHENAMINE HIPPURATE 1 GM PO SCH ×2 (10:11→20:29)
[2023-03-25 14:52] VITALS: BP 112/66; TEMP 97.9; O2SAT 100
[2023-03-25] MEDS: traZODone 50 MG TAB PO SCH (20:29)
[2023-03-26 05:05] VITALS: BP 97/55; TEMP 98.4; O2SAT 98
[2023-03-26] MEDS: GABAPENTIN 400MG CAP PO SCH ×2 (09:52→20:16)
[2023-03-26] MEDS: PANTOPRAZOLE 40MG TAB (PROTONIX) PO SCH (09:52)
[2023-03-26] MEDS: buPROPion **XL** TABLET 150MG (WELLBUTRIN XL) PO SCH (09:52)
[2023-03-26] MEDS: oxyBUTYnin *DITROPAN XL* 5 MG TABCR PO SCH (09:52)
[2023-03-26] MEDS: ENOXAPARIN 40MG/0.4ML SYRINGE (J1650 PER 10MG) SC SCH (09:53)
[2023-03-26] MEDS: SODIUM CHLORIDE 0.9% INJ 10 ML SYR IV SCH (09:53)
[2023-03-26] MEDS: METHENAMINE HIPPURATE 1 GM PO SCH ×2 (09:53→20:17)
[2023-03-26] MEDS: traZODone 50 MG TAB PO SCH (20:16)
[2023-03-27 05:50] VITALS: BP 109/70; TEMP 97.7; O2SAT 99
[2023-03-27] MEDS: buPROPion **XL** TABLET 150MG (WELLBUTRIN XL) PO SCH (11:20)
[2023-03-27] MEDS: PANTOPRAZOLE 40MG TAB (PROTONIX) PO SCH (11:20)
[2023-03-27] MEDS: GABAPENTIN 400MG CAP PO SCH ×2 (11:21→21:20)
[2023-03-27] MEDS: oxyBUTYnin *DITROPAN XL* 5 MG TABCR PO SCH (11:21)
[2023-03-27] MEDS: ENOXAPARIN 40MG/0.4ML SYRINGE (J1650 PER 10MG) SC SCH (11:21)
[2023-03-27] MEDS: METHENAMINE HIPPURATE 1 GM PO SCH ×2 (11:25→21:20)
[2023-03-27] MEDS: methylPREDNISolone 1,000 MG, VIAL MATE ADAPTER 1 EACH in NS 250 ML IV SCH (13:04)
[2023-03-27] MEDS: SODIUM CHLORIDE 0.9% INJ 10 ML SYR IV SCH (14:26)
[2023-03-27] MEDS: traZODone 50 MG TAB PO SCH (21:20)
[2023-03-28 04:45] VITALS: BP 126/88; TEMP 97.1; O2SAT 97
[2023-03-28] MEDS: oxyBUTYnin *DITROPAN XL* 5 MG TABCR PO SCH (09:43)
[2023-03-28] MEDS: ENOXAPARIN 40MG/0.4ML SYRINGE (J1650 PER 10MG) SC SCH (09:43)
[2023-03-28] MEDS: PANTOPRAZOLE 40MG TAB (PROTONIX) PO SCH (09:44)
[2023-03-28] MEDS: buPROPion **XL** TABLET 150MG (WELLBUTRIN XL) PO SCH (09:44)
[2023-03-28] MEDS: GABAPENTIN 400MG CAP PO SCH ×2 (09:44→22:03)
[2023-03-28] MEDS: METHENAMINE HIPPURATE 1 GM PO SCH ×2 (09:44→22:03)
[2023-03-28] MEDS: SODIUM CHLORIDE 0.9% INJ 10 ML SYR IV SCH (09:45)
[2023-03-28] MEDS: traZODone 50 MG TAB PO SCH (22:03)
[2023-03-29 06:18] VITALS: BP 104/58; TEMP 97.9; O2SAT 96
[2023-03-29] MEDS: ENOXAPARIN 40MG/0.4ML SYRINGE (J1650 PER 10MG) SC SCH (09:32)
[2023-03-29] MEDS: GABAPENTIN 400MG CAP PO SCH ×2 (09:33→21:30)
[2023-03-29] MEDS: buPROPion **XL** TABLET 150MG (WELLBUTRIN XL) PO SCH (09:33)
[2023-03-29] MEDS: PANTOPRAZOLE 40MG TAB (PROTONIX) PO SCH (09:33)
[2023-03-29] MEDS: METHENAMINE HIPPURATE 1 GM PO SCH ×2 (09:34→21:30)
[2023-03-29] MEDS: oxyBUTYnin *DITROPAN XL* 5 MG TABCR PO SCH (09:34)
[2023-03-29] MEDS: traZODone 50 MG TAB PO SCH (21:30)
[2023-03-30 06:24] VITALS: BP 105/56; TEMP 97.9; O2SAT 96
[2023-03-30] MEDS: oxyBUTYnin *DITROPAN XL* 5 MG TABCR PO SCH (09:05)
[2023-03-30] MEDS: GABAPENTIN 400MG CAP PO SCH ×2 (09:06→21:29)
[2023-03-30] MEDS: buPROPion **XL** TABLET 150MG (WELLBUTRIN XL) PO SCH (09:06)
[2023-03-30] MEDS: METHENAMINE HIPPURATE 1 GM PO SCH ×2 (09:06→21:29)
[2023-03-30] MEDS: PANTOPRAZOLE 40MG TAB (PROTONIX) PO SCH (09:06)
[2023-03-30] MEDS: ENOXAPARIN 40MG/0.4ML SYRINGE (J1650 PER 10MG) SC SCH (09:07)
[2023-03-30] MEDS: traZODone 50 MG TAB PO SCH (21:28)
[2023-03-31 06:00] VITALS: BP 101/63; TEMP 97.9; O2SAT 96
[2023-03-31] MEDS: ANALGESIC BALM CRM 3OZ TOP PRN (06:32)
[2023-03-31] MEDS: PANTOPRAZOLE 40MG TAB (PROTONIX) PO SCH (08:36)
[2023-03-31] MEDS: oxyBUTYnin *DITROPAN XL* 5 MG TABCR PO SCH (08:36)
[2023-03-31] MEDS: METHENAMINE HIPPURATE 1 GM PO SCH ×2 (08:36→21:00)
[2023-03-31] MEDS: GABAPENTIN 400MG CAP PO SCH ×2 (08:36→21:01)
[2023-03-31] MEDS: ENOXAPARIN 40MG/0.4ML SYRINGE (J1650 PER 10MG) SC SCH (08:37)
[2023-03-31] MEDS: buPROPion **XL** TABLET 150MG (WELLBUTRIN XL) PO SCH (08:37)
[2023-03-31] MEDS: traZODone 50 MG TAB PO SCH (21:01)
[2023-04-01 06:06] VITALS: BP 101/64; TEMP 97.7; O2SAT 97
[2023-04-01] MEDS: GABAPENTIN 400MG CAP PO SCH ×2 (09:14→21:23)
[2023-04-01] MEDS: buPROPion **XL** TABLET 150MG (WELLBUTRIN XL) PO SCH (09:14)
[2023-04-01] MEDS: PANTOPRAZOLE 40MG TAB (PROTONIX) PO SCH (09:14)
[2023-04-01] MEDS: oxyBUTYnin *DITROPAN XL* 5 MG TABCR PO SCH (09:14)
[2023-04-01] MEDS: ENOXAPARIN 40MG/0.4ML SYRINGE (J1650 PER 10MG) SC SCH (09:14)
[2023-04-01] MEDS: METHENAMINE HIPPURATE 1 GM PO SCH ×2 (09:15→21:24)
[2023-04-01] MEDS: MOM 30ML SUSPENSION UDC PO PRN (12:08)
[2023-04-01] MEDS: traZODone 50 MG TAB PO SCH (21:23)
[2023-04-02 06:41] VITALS: BP 100/70; TEMP 97.9; O2SAT 96
[2023-04-02] MEDS: ENOXAPARIN 40MG/0.4ML SYRINGE (J1650 PER 10MG) SC SCH (10:10)
[2023-04-02] MEDS: oxyBUTYnin *DITROPAN XL* 5 MG TABCR PO SCH (10:11)
[2023-04-02] MEDS: GABAPENTIN 400MG CAP PO SCH ×2 (10:11→20:37)
[2023-04-02] MEDS: buPROPion **XL** TABLET 150MG (WELLBUTRIN XL) PO SCH (10:11)
[2023-04-02] MEDS: PANTOPRAZOLE 40MG TAB (PROTONIX) PO SCH (10:11)
[2023-04-02] MEDS: METHENAMINE HIPPURATE 1 GM PO SCH ×2 (10:11→20:37)
[2023-04-02] MEDS: ANALGESIC BALM CRM 3OZ TOP PRN (17:36)
[2023-04-02] MEDS: traZODone 50 MG TAB PO SCH (20:37)
[2023-04-03 06:34] VITALS: BP 112/80; TEMP 97.5; O2SAT 96
[2023-04-03] MEDS: ENOXAPARIN 40MG/0.4ML SYRINGE (J1650 PER 10MG) SC SCH (08:33)
[2023-04-03] MEDS: METHENAMINE HIPPURATE 1 GM PO SCH ×2 (08:33→20:20)
[2023-04-03] MEDS: oxyBUTYnin *DITROPAN XL* 5 MG TABCR PO SCH (08:34)
[2023-04-03] MEDS: buPROPion **XL** TABLET 150MG (WELLBUTRIN XL) PO SCH (08:34)
[2023-04-03] MEDS: PANTOPRAZOLE 40MG TAB (PROTONIX) PO SCH (08:34)
[2023-04-03] MEDS: GABAPENTIN 400MG CAP PO SCH ×2 (08:34→20:20)
[2023-04-03] MEDS: traZODone 50 MG TAB PO SCH (20:20)
[2023-04-04 05:41] VITALS: BP 131/70; TEMP 97.9; O2SAT 96
[2023-04-04] MEDS: METHENAMINE HIPPURATE 1 GM PO SCH ×2 (09:44→20:40)
[2023-04-04] MEDS: PANTOPRAZOLE 40MG TAB (PROTONIX) PO SCH (09:44)
[2023-04-04] MEDS: ENOXAPARIN 40MG/0.4ML SYRINGE (J1650 PER 10MG) SC SCH (09:44)
[2023-04-04] MEDS: buPROPion **XL** TABLET 150MG (WELLBUTRIN XL) PO SCH (09:44)
[2023-04-04] MEDS: GABAPENTIN 400MG CAP PO SCH ×2 (09:45→20:39)
[2023-04-04] MEDS: oxyBUTYnin *DITROPAN XL* 5 MG TABCR PO SCH (09:45)
[2023-04-04] MEDS: [UNRECOGNIZED DRUG - OTHER] SQ SCH (10:05)
[2023-04-04] MEDS: traZODone 50 MG TAB PO SCH (20:39)
[2023-04-05 06:15] VITALS: BP 108/64; TEMP 98.6; O2SAT 96
[2023-04-05] MEDS: ENOXAPARIN 40MG/0.4ML SYRINGE (J1650 PER 10MG) SC SCH (09:46)
[2023-04-05] MEDS: PANTOPRAZOLE 40MG TAB (PROTONIX) PO SCH (09:47)
[2023-04-05] MEDS: buPROPion **XL** TABLET 150MG (WELLBUTRIN XL) PO SCH (09:47)
[2023-04-05] MEDS: METHENAMINE HIPPURATE 1 GM PO SCH ×2 (09:47→20:33)
[2023-04-05] MEDS: GABAPENTIN 400MG CAP PO SCH ×2 (09:47→20:33)
[2023-04-05] MEDS: SERTRALINE HCL 25 MG TABLET PO SCH (09:47)
[2023-04-05] MEDS: oxyBUTYnin *DITROPAN XL* 5 MG TABCR PO SCH (09:47)
[2023-04-05] MEDS: traZODone 50 MG TAB PO SCH (20:33)
[2023-04-06 06:00] VITALS: BP 93/63; TEMP 97.7; O2SAT 96
[2023-04-06 06:50] LABS: BASO % 0.8 % (0.0-1.0); EOS # 0.3 10^3/uL (0.0-0.5); HEMATOCRIT 36.8 % (36.0-47.0); LYMPH # 2.1 10^3/uL (1.5-5.0); LYMPH % 40.8 % (24.0-44.0); MEAN CORPUSCULAR HEMOGLOBIN 29.7 pg (27.0-33.0); MEAN CORPUSCULAR HGB CONC 32.6 g/dl (32.0-36.5); MEAN CORPUSCULAR VOLUME 91.1 fl (80.0-96.0); MONO # 0.5 10^3/uL (0.0-0.8); NEUTROPHILS # 2.2 10^3/uL (1.5-8.5); NEUTROPHILS % 44.2 % (36.0-66.0); PLATELET COUNT, AUTOMATED 261 10^3/uL (150-450); RED BLOOD COUNT 4.04 10^6/uL (4.00-5.40)
[2023-04-06 07:00] LABS: INR 1.14; PROTHROMBIN TIME 14.3 SECONDS (12.5-14.5)
[2023-04-06 07:01] LABS: PARTIAL THROMBOPLASTIN TIME 32.5 SECONDS (24.8-34.2)
[2023-04-06 07:19] LABS: BLOOD UREA NITROGEN 12 MG/DL (9-23); CALCIUM LEVEL 8.9 MG/DL (8.5-10.1); CARBON DIOXIDE LEVEL 31 MMOL/L (20-31); CHLORIDE LEVEL 105 MMOL/L (98-107); CREATININE FOR GFR 0.72 MG/DL (0.55-1.30); GLOMERULAR FILTRATION RATE > 60.0 (>51); GLUCOSE, FASTING 74 MG/DL (60-100); POTASSIUM SERUM 3.9 MMOL/L (3.5-5.1); SODIUM LEVEL 142 MMOL/L (136-145)
[2023-04-06] MEDS: SERTRALINE HCL 25 MG TABLET PO SCH (09:04)
[2023-04-06] MEDS: buPROPion **XL** TABLET 150MG (WELLBUTRIN XL) PO SCH (09:04)
[2023-04-06] MEDS: oxyBUTYnin *DITROPAN XL* 5 MG TABCR PO SCH (09:04)
[2023-04-06] MEDS: PANTOPRAZOLE 40MG TAB (PROTONIX) PO SCH (09:04)
[2023-04-06] MEDS: GABAPENTIN 400MG CAP PO SCH ×2 (09:04→22:09)
[2023-04-06] MEDS: METHENAMINE HIPPURATE 1 GM PO SCH ×2 (09:04→22:09)
[2023-04-06] MEDS: MOM 30ML SUSPENSION UDC PO SCH (11:18)
[2023-04-06] MEDS: SENOKOT S TAB PO SCH ×2 (11:18→22:09)
[2023-04-06] MEDS: RIVAROXABAN 10MG TAB (XARELTO) PO SCH (18:24)
[2023-04-06] MEDS: traZODone 50 MG TAB PO SCH (22:09)
[2023-04-07 05:05] VITALS: BP 113/69; TEMP 97; O2SAT 97
[2023-04-07] MEDS: oxyBUTYnin *DITROPAN XL* 5 MG TABCR PO SCH (09:37)
[2023-04-07] MEDS: SERTRALINE HCL 25 MG TABLET PO SCH (09:37)
[2023-04-07] MEDS: buPROPion **XL** TABLET 150MG (WELLBUTRIN XL) PO SCH (09:37)
[2023-04-07] MEDS: GABAPENTIN 400MG CAP PO SCH ×2 (09:37→20:42)
[2023-04-07] MEDS: MOM 30ML SUSPENSION UDC PO SCH (09:38)
[2023-04-07] MEDS: METHENAMINE HIPPURATE 1 GM PO SCH ×2 (09:38→20:41)
[2023-04-07] MEDS: SENOKOT S TAB PO SCH ×2 (09:38→20:42)
[2023-04-07] MEDS: PANTOPRAZOLE 40MG TAB (PROTONIX) PO SCH (09:38)
[2023-04-07] MEDS: RIVAROXABAN 10MG TAB (XARELTO) PO SCH (18:19)
[2023-04-07] MEDS: traZODone 50 MG TAB PO SCH (20:42)
[2023-04-08 05:05] VITALS: BP 107/66; TEMP 97.5; O2SAT 96
[2023-04-08] MEDS: oxyBUTYnin *DITROPAN XL* 5 MG TABCR PO SCH (09:18)
[2023-04-08] MEDS: SENOKOT S TAB PO SCH ×2 (09:18→20:54)
[2023-04-08] MEDS: METHENAMINE HIPPURATE 1 GM PO SCH ×2 (09:18→20:53)
[2023-04-08] MEDS: GABAPENTIN 400MG CAP PO SCH ×2 (09:18→20:54)
[2023-04-08] MEDS: buPROPion **XL** TABLET 150MG (WELLBUTRIN XL) PO SCH (09:18)
[2023-04-08] MEDS: MOM 30ML SUSPENSION UDC PO SCH (09:18)
[2023-04-08] MEDS: SERTRALINE HCL 25 MG TABLET PO SCH (09:18)
[2023-04-08] MEDS: PANTOPRAZOLE 40MG TAB (PROTONIX) PO SCH ×2 (09:19→20:53)
[2023-04-08] MEDS: RIVAROXABAN 10MG TAB (XARELTO) PO SCH (17:30)
[2023-04-08] MEDS: traZODone 50 MG TAB PO SCH (20:53)
[2023-04-09 05:20] VITALS: BP 101/62; TEMP 97.9; O2SAT 97
[2023-04-09] MEDS: GABAPENTIN 400MG CAP PO SCH ×2 (08:57→20:12)
[2023-04-09] MEDS: oxyBUTYnin *DITROPAN XL* 5 MG TABCR PO SCH (08:58)
[2023-04-09] MEDS: buPROPion **XL** TABLET 150MG (WELLBUTRIN XL) PO SCH (08:58)
[2023-04-09] MEDS: SENOKOT S TAB PO SCH ×2 (08:58→20:13)
[2023-04-09] MEDS: SERTRALINE HCL 25 MG TABLET PO SCH (08:58)
[2023-04-09] MEDS: MOM 30ML SUSPENSION UDC PO SCH (08:59)
[2023-04-09] MEDS: METHENAMINE HIPPURATE 1 GM PO SCH ×2 (08:59→20:12)
[2023-04-09] MEDS: RIVAROXABAN 10MG TAB (XARELTO) PO SCH (17:06)
[2023-04-09] MEDS: PANTOPRAZOLE 40MG TAB (PROTONIX) PO SCH (20:13)
[2023-04-09] MEDS: traZODone 50 MG TAB PO SCH (20:13)
[2023-04-10 06:15] VITALS: BP 121/67; TEMP 97.7; O2SAT 100
[2023-04-10] MEDS: MOM 30ML SUSPENSION UDC PO SCH (08:40)
[2023-04-10] MEDS: SERTRALINE HCL 25 MG TABLET PO SCH (08:41)
[2023-04-10] MEDS: GABAPENTIN 400MG CAP PO SCH ×2 (08:41→21:28)
[2023-04-10] MEDS: buPROPion **XL** TABLET 150MG (WELLBUTRIN XL) PO SCH (08:41)
[2023-04-10] MEDS: SENOKOT S TAB PO SCH ×2 (08:41→21:00)
[2023-04-10] MEDS: oxyBUTYnin *DITROPAN XL* 5 MG TABCR PO SCH (08:41)
[2023-04-10] MEDS: METHENAMINE HIPPURATE 1 GM PO SCH ×2 (08:42→21:27)
[2023-04-10] MEDS ORDERED: MOM 30ML SUSPENSION UDC PO PRN (13:20)
[2023-04-10] MEDS: RIVAROXABAN 10MG TAB (XARELTO) PO SCH (17:06)
[2023-04-10] MEDS: traZODone 50 MG TAB PO SCH (21:28)
[2023-04-10] MEDS: PANTOPRAZOLE 40MG TAB (PROTONIX) PO SCH (21:28)
[2023-04-11 05:25] VITALS: BP 104/62; TEMP 97; O2SAT 97
[2023-04-11 05:42] LABS: BASO % 0.4 % (0.0-1.0); EOS # 0.3 10^3/uL (0.0-0.5); EOS % 3.9 % (0.0-3.0); HEMATOCRIT 38.5 % (36.0-47.0); HEMOGLOBIN 12.6 g/dl (12.0-15.5); LYMPH # 2.2 10^3/uL (1.5-5.0); LYMPH % 31.6 % (24.0-44.0); MEAN CORPUSCULAR HEMOGLOBIN 29.7 pg (27.0-33.0); MEAN CORPUSCULAR HGB CONC 32.7 g/dl (32.0-36.5); MEAN CORPUSCULAR VOLUME 90.8 fl (80.0-96.0); MONO # 0.5 10^3/uL (0.0-0.8); MONO % 6.9 % (2.0-8.0); NEUTROPHILS % 57.2 % (36.0-66.0); PLATELET COUNT, AUTOMATED 267 10^3/uL (150-450); RED BLOOD COUNT 4.24 10^6/uL (4.00-5.40); WHITE BLOOD COUNT 6.9 10^3/uL (4.0-10.0)
[2023-04-11 06:07] LABS: ALBUMIN 3.4 G/DL (3.2-5.2); ALKALINE PHOSPHATASE 51 U/L (46-116); ALT/SGPT 18 U/L (7.0-40); AST/SGOT 12 U/L (<34); BILIRUBIN,TOTAL 0.3 MG/DL (0.3-1.2); BLOOD UREA NITROGEN 21 MG/DL (9-23); CARBON DIOXIDE LEVEL 32 MMOL/L (20-31); CHLORIDE LEVEL 105 MMOL/L (98-107); CREATININE FOR GFR 0.79 MG/DL (0.55-1.30); GLOMERULAR FILTRATION RATE > 60.0 (>51); GLUCOSE, FASTING 89 MG/DL (60-100); MAGNESIUM LEVEL 2.1 MG/DL (1.8-2.4); SODIUM LEVEL 143 MMOL/L (136-145); TOTAL PROTEIN 6.3 G/DL (5.7-8.2)
[2023-04-11] MEDS: SENOKOT S TAB PO SCH ×2 (09:00→21:00)
[2023-04-11] MEDS: LACTOBACILLUS ACIDOPHILUS CAP (BACID) PO SCH ×2 (11:49→17:37)
[2023-04-11] MEDS: SERTRALINE HCL 25 MG TABLET PO SCH (11:50)
[2023-04-11] MEDS: CEFDINIR 300 MG CAP (OMNICEF) PO SCH ×2 (11:50→22:13)
[2023-04-11] MEDS: buPROPion **XL** TABLET 150MG (WELLBUTRIN XL) PO SCH (11:50)
[2023-04-11] MEDS: oxyBUTYnin *DITROPAN XL* 5 MG TABCR PO SCH (11:50)
[2023-04-11] MEDS: METHENAMINE HIPPURATE 1 GM PO SCH ×2 (11:51→22:13)
[2023-04-11] MEDS: GABAPENTIN 400MG CAP PO SCH ×2 (11:56→22:14)
[2023-04-11] MEDS: RIVAROXABAN 10MG TAB (XARELTO) PO SCH (17:37)
[2023-04-11] MEDS: traZODone 50 MG TAB PO SCH (22:13)
[2023-04-11] MEDS: PANTOPRAZOLE 40MG TAB (PROTONIX) PO SCH (22:14)
[2023-04-12 05:42] VITALS: BP 100/53; TEMP 97; O2SAT 95
[2023-04-12] MEDS: SENOKOT S TAB PO SCH ×2 (09:00→20:29)
[2023-04-12] MEDS: CEFDINIR 300 MG CAP (OMNICEF) PO SCH ×2 (09:06→20:29)
[2023-04-12] MEDS: LACTOBACILLUS ACIDOPHILUS CAP (BACID) PO SCH ×2 (09:06→17:44)
[2023-04-12] MEDS: SERTRALINE HCL 25 MG TABLET PO SCH (09:06)
[2023-04-12] MEDS: oxyBUTYnin *DITROPAN XL* 5 MG TABCR PO SCH (09:06)
[2023-04-12] MEDS: GABAPENTIN 400MG CAP PO SCH ×2 (09:06→20:29)
[2023-04-12] MEDS: METHENAMINE HIPPURATE 1 GM PO SCH ×2 (09:06→20:30)
[2023-04-12] MEDS: buPROPion **XL** TABLET 150MG (WELLBUTRIN XL) PO SCH (09:07)
[2023-04-12] MEDS: RIVAROXABAN 10MG TAB (XARELTO) PO SCH (17:45)
[2023-04-12] MEDS: traZODone 50 MG TAB PO SCH (20:29)
[2023-04-12] MEDS: PANTOPRAZOLE 40MG TAB (PROTONIX) PO SCH (20:29)
[2023-04-13 06:00] VITALS: BP 124/69; TEMP 97; O2SAT 96
[2023-04-13] MEDS: GABAPENTIN 400MG CAP PO SCH ×2 (08:18→19:55)
[2023-04-13] MEDS: buPROPion **XL** TABLET 150MG (WELLBUTRIN XL) PO SCH (08:18)
[2023-04-13] MEDS: LACTOBACILLUS ACIDOPHILUS CAP (BACID) PO SCH ×2 (08:18→18:23)
[2023-04-13] MEDS: CEFDINIR 300 MG CAP (OMNICEF) PO SCH ×2 (08:19→19:54)
[2023-04-13] MEDS: SERTRALINE HCL 25 MG TABLET PO SCH (08:19)
[2023-04-13] MEDS: SENOKOT S TAB PO SCH ×2 (08:19→19:55)
[2023-04-13] MEDS: oxyBUTYnin *DITROPAN XL* 5 MG TABCR PO SCH (08:21)
[2023-04-13] MEDS: METHENAMINE HIPPURATE 1 GM PO SCH ×2 (08:22→19:54)
[2023-04-13] MEDS: RIVAROXABAN 10MG TAB (XARELTO) PO SCH (18:24)
[2023-04-13] MEDS: traZODone 50 MG TAB PO SCH (19:54)
[2023-04-13] MEDS: PANTOPRAZOLE 40MG TAB (PROTONIX) PO SCH (19:54)
[2023-04-14 06:00] VITALS: BP 96/55; TEMP 97.5; O2SAT 98
[2023-04-14] MEDS ORDERED: INFLUENZA QUADRIVALENT PF VACCINE 0.5ML SYRINGE IM.IMMUN ONE (09:00)
[2023-04-14] MEDS: oxyBUTYnin *DITROPAN XL* 5 MG TABCR PO SCH (10:13)
[2023-04-14] MEDS: LACTOBACILLUS ACIDOPHILUS CAP (BACID) PO SCH ×2 (10:13→18:00)
[2023-04-14] MEDS: GABAPENTIN 400MG CAP PO SCH ×2 (10:14→20:13)
[2023-04-14] MEDS: SENOKOT S TAB PO SCH ×2 (10:14→20:13)
[2023-04-14] MEDS: CEFDINIR 300 MG CAP (OMNICEF) PO SCH ×2 (10:14→20:13)
[2023-04-14] MEDS: METHENAMINE HIPPURATE 1 GM PO SCH ×2 (10:14→20:13)
[2023-04-14] MEDS: buPROPion **XL** TABLET 150MG (WELLBUTRIN XL) PO SCH (10:15)
[2023-04-14] MEDS: SERTRALINE HCL 50 MG TAB PO SCH (10:15)
[2023-04-14] MEDS: RIVAROXABAN 10MG TAB (XARELTO) PO SCH (18:00)
[2023-04-14] MEDS: PANTOPRAZOLE 40MG TAB (PROTONIX) PO SCH (20:12)
[2023-04-14] MEDS: traZODone 50 MG TAB PO SCH (20:13)
[2023-04-15 06:00] VITALS: BP 96/59; TEMP 98.1; O2SAT 99
[2023-04-15] MEDS: LACTOBACILLUS ACIDOPHILUS CAP (BACID) PO SCH ×2 (09:46→17:05)
[2023-04-15] MEDS: METHENAMINE HIPPURATE 1 GM PO SCH ×2 (09:46→20:45)
[2023-04-15] MEDS: oxyBUTYnin *DITROPAN XL* 5 MG TABCR PO SCH (09:47)
[2023-04-15] MEDS: buPROPion **XL** TABLET 150MG (WELLBUTRIN XL) PO SCH (09:47)
[2023-04-15] MEDS: SENOKOT S TAB PO SCH ×2 (09:47→20:45)
[2023-04-15] MEDS: GABAPENTIN 400MG CAP PO SCH ×2 (09:47→20:44)
[2023-04-15] MEDS: SERTRALINE HCL 50 MG TAB PO SCH (09:47)
[2023-04-15] MEDS: RIVAROXABAN 10MG TAB (XARELTO) PO SCH (17:05)
[2023-04-15] MEDS: PANTOPRAZOLE 40MG TAB (PROTONIX) PO SCH (20:44)
[2023-04-15] MEDS: traZODone 50 MG TAB PO SCH (20:44)
[2023-04-16 05:20] VITALS: BP 90/60; TEMP 97.8; O2SAT 99
[2023-04-16 05:30] VITALS: BP 100/62
[2023-04-16] MEDS: GABAPENTIN 400MG CAP PO SCH ×2 (08:04→21:12)
[2023-04-16] MEDS: SERTRALINE HCL 50 MG TAB PO SCH (08:05)
[2023-04-16] MEDS: LACTOBACILLUS ACIDOPHILUS CAP (BACID) PO SCH ×2 (08:05→17:48)
[2023-04-16] MEDS: oxyBUTYnin *DITROPAN XL* 5 MG TABCR PO SCH (08:06)
[2023-04-16] MEDS: buPROPion **XL** TABLET 150MG (WELLBUTRIN XL) PO SCH (08:07)
[2023-04-16] MEDS: METHENAMINE HIPPURATE 1 GM PO SCH ×2 (08:08→21:13)
[2023-04-16] MEDS: SENOKOT S TAB PO SCH ×3 (08:09→21:13)
[2023-04-16] MEDS: ACETAMINOPHEN TAB 650MG DOSE (2X325MG) PO PRN ×2 (10:41→17:47)
[2023-04-16] MEDS: RIVAROXABAN 10MG TAB (XARELTO) PO SCH (17:48)
[2023-04-16] MEDS: traZODone 50 MG TAB PO SCH (21:12)
[2023-04-16] MEDS: PANTOPRAZOLE 40MG TAB (PROTONIX) PO SCH (21:13)
[2023-04-17 05:50] VITALS: BP 95/66; TEMP 96.4; O2SAT 99
[2023-04-17] MEDS: LACTOBACILLUS ACIDOPHILUS CAP (BACID) PO SCH ×2 (08:24→17:43)
[2023-04-17] MEDS: buPROPion **XL** TABLET 150MG (WELLBUTRIN XL) PO SCH (08:25)
[2023-04-17] MEDS: SERTRALINE HCL 50 MG TAB PO SCH (08:26)
[2023-04-17] MEDS: GABAPENTIN 400MG CAP PO SCH ×2 (08:26→20:20)
[2023-04-17] MEDS: METHENAMINE HIPPURATE 1 GM PO SCH ×2 (08:27→20:21)
[2023-04-17] MEDS: oxyBUTYnin *DITROPAN XL* 5 MG TABCR PO SCH (08:27)
[2023-04-17] MEDS: SENOKOT S TAB PO SCH ×2 (08:28→20:20)
[2023-04-17] MEDS ORDERED: SODIUM CHLORIDE 0.9% INJ 10 ML SYR IV SCH (09:00)
[2023-04-17] MEDS: methylPREDNISolone 1,000 MG, VIAL MATE ADAPTER 1 EACH in NS 250 ML IV SCH (11:14)
[2023-04-17] MEDS: RIVAROXABAN 10MG TAB (XARELTO) PO SCH (17:43)
[2023-04-17] MEDS: traZODone 50 MG TAB PO SCH (20:20)
[2023-04-17] MEDS: PANTOPRAZOLE 40MG TAB (PROTONIX) PO SCH (20:20)
[2023-04-17] MEDS: ACETAMINOPHEN TAB 650MG DOSE (2X325MG) PO PRN (20:25)
[2023-04-18 05:10] VITALS: BP 100/66; TEMP 98.1; O2SAT 97
[2023-04-18] MEDS: METHENAMINE HIPPURATE 1 GM PO SCH ×2 (09:23→20:16)
[2023-04-18] MEDS: SENOKOT S TAB PO SCH ×2 (09:23→20:16)
[2023-04-18] MEDS: GABAPENTIN 400MG CAP PO SCH ×2 (09:23→20:16)
[2023-04-18] MEDS: buPROPion **XL** TABLET 150MG (WELLBUTRIN XL) PO SCH (09:24)
[2023-04-18] MEDS: LACTOBACILLUS ACIDOPHILUS CAP (BACID) PO SCH ×2 (09:24→17:31)
[2023-04-18] MEDS: SERTRALINE HCL 50 MG TAB PO SCH (09:24)
[2023-04-18] MEDS: oxyBUTYnin *DITROPAN XL* 5 MG TABCR PO SCH (09:24)
[2023-04-18] MEDS: RIVAROXABAN 10MG TAB (XARELTO) PO SCH (17:31)
[2023-04-18] MEDS: PANTOPRAZOLE 40MG TAB (PROTONIX) PO SCH (20:16)
[2023-04-18] MEDS: traZODone 50 MG TAB PO SCH (20:16)
[2023-04-19 05:50] VITALS: BP 118/69; TEMP 98.1; O2SAT 97
[2023-04-19] MEDS: SENOKOT S TAB PO SCH ×2 (09:00→20:35)
[2023-04-19] MEDS: oxyBUTYnin *DITROPAN XL* 5 MG TABCR PO SCH (09:40)
[2023-04-19] MEDS: buPROPion **XL** TABLET 150MG (WELLBUTRIN XL) PO SCH (09:40)
[2023-04-19] MEDS: METHENAMINE HIPPURATE 1 GM PO SCH ×2 (09:40→20:34)
[2023-04-19] MEDS: LACTOBACILLUS ACIDOPHILUS CAP (BACID) PO SCH ×2 (09:40→17:56)
[2023-04-19] MEDS: SERTRALINE HCL 50 MG TAB PO SCH (09:40)
[2023-04-19] MEDS: GABAPENTIN 400MG CAP PO SCH ×2 (09:40→20:34)
[2023-04-19] MEDS: MAALOX 30 ML SUSP *UDC PO PRN (17:56)
[2023-04-19] MEDS: RIVAROXABAN 10MG TAB (XARELTO) PO SCH (17:56)
[2023-04-19] MEDS: PANTOPRAZOLE 40MG TAB (PROTONIX) PO SCH (20:34)
[2023-04-19] MEDS: traZODone 50 MG TAB PO SCH (20:34)
[2023-04-20 06:00] VITALS: BP 104/57; TEMP 98.6; O2SAT 98
[2023-04-20] MEDS: METHENAMINE HIPPURATE 1 GM PO SCH ×2 (08:58→20:39)
[2023-04-20] MEDS: SERTRALINE HCL 50 MG TAB PO SCH (08:58)
[2023-04-20] MEDS: buPROPion **XL** TABLET 150MG (WELLBUTRIN XL) PO SCH (08:59)
[2023-04-20] MEDS: LACTOBACILLUS ACIDOPHILUS CAP (BACID) PO SCH ×2 (08:59→17:56)
[2023-04-20] MEDS: GABAPENTIN 400MG CAP PO SCH ×2 (08:59→20:39)
[2023-04-20] MEDS: SENOKOT S TAB PO SCH ×2 (09:00→20:38)
[2023-04-20] MEDS: oxyBUTYnin *DITROPAN XL* 5 MG TABCR PO SCH (09:00)
[2023-04-20] MEDS: MAALOX 30 ML SUSP *UDC PO PRN (10:56)
[2023-04-20] MEDS: RIVAROXABAN 10MG TAB (XARELTO) PO SCH (17:57)
[2023-04-20] MEDS: traZODone 50 MG TAB PO SCH (20:38)
[2023-04-20] MEDS: PANTOPRAZOLE 40MG TAB (PROTONIX) PO SCH (20:39)
[2023-04-21 06:00] VITALS: BP 97/57; TEMP 97.9; O2SAT 98
[2023-04-21] MEDS: LACTOBACILLUS ACIDOPHILUS CAP (BACID) PO SCH ×2 (08:34→18:09)
[2023-04-21] MEDS: METHENAMINE HIPPURATE 1 GM PO SCH (08:34)
[2023-04-21] MEDS: GABAPENTIN 400MG CAP PO SCH ×2 (08:35→21:18)
[2023-04-21] MEDS: oxyBUTYnin *DITROPAN XL* 5 MG TABCR PO SCH (08:35)
[2023-04-21] MEDS: buPROPion **XL** TABLET 150MG (WELLBUTRIN XL) PO SCH (08:35)
[2023-04-21] MEDS: SERTRALINE HCL 50 MG TAB PO SCH (08:36)
[2023-04-21] MEDS: SENOKOT S TAB PO SCH ×2 (08:49→21:00)
[2023-04-21] MEDS: MAALOX 30 ML SUSP *UDC PO PRN ×2 (09:16→21:24)
[2023-04-21] MEDS: RIVAROXABAN 10MG TAB (XARELTO) PO SCH (18:09)
[2023-04-21] MEDS: METHENAMINE HIPPURATE 1GM TABLET PO SCH (21:19)
[2023-04-21] MEDS: PANTOPRAZOLE 40MG TAB (PROTONIX) PO SCH (21:19)
[2023-04-21] MEDS: traZODone 50 MG TAB PO SCH (21:19)
[2023-04-22 06:29] VITALS: BP 108/58; TEMP 97.7; O2SAT 96
[2023-04-22] MEDS: SERTRALINE HCL 50 MG TAB PO SCH (09:35)
[2023-04-22] MEDS: buPROPion **XL** TABLET 150MG (WELLBUTRIN XL) PO SCH (09:35)
[2023-04-22] MEDS: SENOKOT S TAB PO SCH ×2 (09:35→21:00)
[2023-04-22] MEDS: METHENAMINE HIPPURATE 1GM TABLET PO SCH ×2 (09:36→21:48)
[2023-04-22] MEDS: LACTOBACILLUS ACIDOPHILUS CAP (BACID) PO SCH ×2 (09:36→18:07)
[2023-04-22] MEDS: GABAPENTIN 400MG CAP PO SCH ×2 (09:36→21:48)
[2023-04-22] MEDS: oxyBUTYnin *DITROPAN XL* 5 MG TABCR PO SCH (09:36)
[2023-04-22] MEDS ORDERED: RISATAB3 PO (15:21)
[2023-04-22] MEDS ORDERED: SERT50TA29 PO (15:21)
[2023-04-22] MEDS: RIVAROXABAN 10MG TAB (XARELTO) PO SCH (18:07)
[2023-04-22] MEDS: PANTOPRAZOLE 40MG TAB (PROTONIX) PO SCH (21:47)
[2023-04-22] MEDS: traZODone 50 MG TAB PO SCH (21:47)
[2023-04-23 05:25] VITALS: BP 111/73; TEMP 97.2; O2SAT 100
[2023-04-23] MEDS: oxyBUTYnin *DITROPAN XL* 5 MG TABCR PO SCH (08:58)
[2023-04-23] MEDS: LACTOBACILLUS ACIDOPHILUS CAP (BACID) PO SCH (08:58)
[2023-04-23] MEDS: buPROPion **XL** TABLET 150MG (WELLBUTRIN XL) PO SCH (08:58)
[2023-04-23] MEDS: GABAPENTIN 400MG CAP PO SCH (08:58)
[2023-04-23] MEDS: METHENAMINE HIPPURATE 1GM TABLET PO SCH (08:58)
[2023-04-23] MEDS: SENOKOT S TAB PO SCH (08:59)
[2023-04-23] MEDS: SERTRALINE HCL 50 MG TAB PO SCH (08:59)
== END 2023-04-23 10:10 | DRG 59 ==
LOC: M ED 16:26 → M ED INP 16:27 → M MS4PR 03-04 11:42 → OBSVTOIN 03-05 12:48 → M MS5PR 03-11 17:15
PROVIDERS: ADMIT Family Medicine; ATTEND General Practice
DX: G35 Multiple sclerosis (principal); N39.0 Urinary tract infection, site not specified; R29.6 Repeated falls; F06.31 Mood disorder due to known physiological condition with depressive features; R33.9 Retention of urine, unspecified; Z74.1 Need for assistance with personal care; K21.9 Gastro-esophageal reflux disease without esophagitis; Z88.8 Allergy status to other drugs, medicaments and biological substances; E83.42 Hypomagnesemia; B96.20 Unspecified Escherichia coli [E. coli] as the cause of diseases classified elsewhere; N31.9 Neuromuscular dysfunction of bladder, unspecified; F43.21 Adjustment disorder with depressed mood; G47.00 Insomnia, unspecified; Z99.3 Dependence on wheelchair; Z86.16 Personal history of COVID-19; Z79.899 Other long term (current) drug therapy; Z20.822 Contact with and (suspected) exposure to COVID-19

== ENCOUNTER → 2023-10-24 | Outpatient (CLI) | payer MEDICARE, MEDICAID ==
[~2023-10-24] MED LIST changes: +BUPR-597 PO; -BUPR300T92 PO; +GABA800T4 PO; +OFAT20PE INJ; +RISATAB3 PO; +SERT50TA29 PO
== END ==
LOC: M PLARAD 13:22
PROVIDERS: ATTEND Nurse Practitioner Family
DX: G35 Multiple sclerosis (principal)